=== PATIENT | female | born 1945 | race Hispanic/Latino ===

== ENCOUNTER → 2017-10-05 | Outpatient (CLI) | payer MEDICARE ==
[~2017-10-05] MED LIST: ALENDRONATE SOD70 MG PO; ASPIRIN81 MG PO; HYDROCODONE APAP; LOVASTATIN PO; Z.0.AMLODIPINE BESYL PO; Z.0.MELOXICAM15 MG PO
== END ==
LOC: MAMMO 09:17
PROVIDERS: ATTEND Internal Medicine
DX: Z12.31 Encounter for screening mammogram for malignant neoplasm of breast (principal)
CPT/HCPCS: 77067

== ENCOUNTER 2018-02-16 09:42 | Emergency (ER) | payer MEDICARE ==
[~2018-02-16] VITALS: Ht 149.9 cm; Wt 69.9 kg
--- OUTSIDE RECORDS SUMMARY | 2018-02-16 09:46 | XMS REPORT ---
Author Author Admin, [place] Organization [facility] Address [address] [place] [address] Phone Allergies, Adverse Reactions, Alerts Allergy Name Reaction Description Start Date Severity Status Provider No Known Allergies Rosie Silver [facility] Conditions or Problems Problem Name Problem Code Onset Date Status Entry Date Provider Comment Standard Description Annotate Cervix, screening for malignant neoplasm V76.2 Active Santiago Camarena MD Screening for malignant neoplasms of the cervix [employer] Chief annual exam V72.3 Active Santiago Camarena MD Special investigations and examinations - Gynecological examination High cholesterol 272.0 Active Santiago Camarena MD Pure hypercholesterolemia Hx of osteopenia V13.59 Active Santiago Camarena MD Personal history of other musculoskeletal disorders Hypertension 401.9 Active Santiago Camarena MD Unspecified essential hypertension Medication List Medication Instructions Start Date Stop Date Generic Name NDC Status Provider Patient Instruction ALENDRONATE SODIUM 70 MG ORAL TABLET 1 pill weekly By Mouth ALENDRONATE SODIUM 42296261565 Active Santiago Camarena MD Active AMLODIPINE BESYLATE 5 MG ORAL TABLET TK 1 T PO QD AMLODIPINE BESYLATE 50826603122 Active Santiago Camarena MD Active ASPIRIN EC LOW DOSE 81 MG ORAL TABLET DELAYED RELEASE TK 1 T PO QD ASPIRIN 42811920261 Active Santiago Camarena MD Active LOVASTATIN 40 MG ORAL TABLET TK 1 T PO QD LOVASTATIN 89833477499 Active Santiago Camarena MD Active Vital Signs Date Name Value Unit Range Description blood pressure, diastolic 74 mm[Hg] BP [place] blood pressure, systolic 128 mm[Hg] BP sys height E&M 60 [in_us] Bdy height pulse rate E&M 82 /min Heart rate respiratory rate E&M 18 /min Resp rate temperature E&M 98.7 [degF] Body temperature weight E&M 153.60 [lb_av] Weight Measured Procedures Code Procedure Name Date Entry Date Standard Description CPT-91094 Est Patient Well Exam (65 & Over) - 03817 12:16:19 CDT CPT-99119 New Patient Well Exam (65 & Over) - 53798 11:28:03 CDT
--- OUTSIDE RECORDS SUMMARY | 2018-02-16 09:46 | XMS REPORT ---
Author Author [facility] Address Unknown Phone Unavailable Care Team Providers Care Stratigrapher Name Role Phone Clemencia MARTINEZ Unavailable Unavailable Problems This patient has no known problems. Allergies, Adverse Reactions, Alerts This patient has no known allergies or adverse reactions. Medications This patient has no known medications. Results Test Description Test Time Test Comments Text Results Atomic Results Result Comments MAMMOGRAPHY DIGITAL SCR BILAT 2017-10-05 09:57:00 [place] [address] Patient Name: BETY LATHAM MR #: [id number] : 1945 Age/Sex: 72/F Req #: [id number] [facility] Physician: Ordered by: BRYSON MARTINEZ MD Report #: [id number] Location: MAMMO Room/Bed: Procedure: [id number] MG/MAMMOGRAPHY DIGITAL SCR BILAT Exam Date: 10/05/17 Exam Time: 0940 REPORT STATUS: Signed #[id number] - MGSCRBIL #BILATERAL DIGITAL SCREENING MAMMOGRAM WITH CAD: 10/05/2017 CLINICAL: Routine screening. Comparison is made to exams dated: 09/08/2016 mammogram and 08/25/2015 mammogram - [facility]. Current study contains 4 films. The tissue of both breasts is heterogeneously dense. This may lower the sensitivity of mammography. Current study was also evaluated with a Computer Aided Detection (CAD) system. There are benign calcifications in both breasts. Breast tissue asymmetry in the upper outer aspect of the right breast is unchanged. No significant masses, calcifications, or other findings are seen in either breast. There has been no significant interval change. IMPRESSION: BENIGN There is no mammographic evidence of malignancy. A 1 ye ar screening mammogram is recommended. The patient will be notified by letter of the results. Arsenio Angel Jr., D.O. cw/:10/12/2017 12:45:23 Shampoo Assistant: Blessing PASTOR)([place]), [facility] letter sent: Compared to Prior B9 Mammogram BI- RADS: 2 Benign Dictated By: ARSENIO ANGEL DO [id number] Transcribed By: SOPHIA on 10/12/17 1243 COPY TO: BRYSON MARTINEZ MD
--- NOTE | 2018-02-16 10:23 | NUR ---
pt states she tripped over grand daughter and fell per daughter pt hit face on concrete pt has bruising to right head and right eye with swelling pt also has bruising to right thigh and c/o pain to right lower leg from fall no deformities, no bruising behind ears, no csf or blood form nose and ears, no crepitus noted pt states pain to head and upper thigh states pain is sharp on palpation /10 denies pain when moving
--- NOTE | 2018-02-16 11:00 | Diagnostic Imaging Report ---
HIP RIGHT 2-3 VW (+/- PELVIS) - 2 views HISTORY: Fall. COMPARISON: None available. FINDINGS: Bilateral hip arthroplasty. Hardware are intact. Generalized demineralization limits evaluation. No acute displaced fracture or dislocation of the pelvis or the right hip. Heterotopic ossification adjacent to the right greater trochanter. Severe degenerative changes of the visualized lower lumbar spine as well as degenerative changes of SI joints. IMPRESSION: No acute radiographic abnormality. Bilateral hip arthroplasty. Hardware are intact. Signed by: Dr. Micheal Barbosa MD on 02/16/2018 10:57 AM
--- NOTE | 2018-02-16 11:22 | Diagnostic Imaging Report ---
Claims: Head and maxillofacial CTs without IV contrast History: Trauma, fall, hit for head and cheek, pain Comparison studies: Head CT 10/30/2011 Technique: Axial images were obtained to the vertex and maxillofacial region. Coronal and sagittal images reconstructed from the axial data. Intravenous contrast: None Findings: Scalp: Right frontal scalp hematoma. Bones: No fractures, blastic or lytic lesions. Brain sulci: Mildly prominent. Ventricles: Mild compensatory dilatation. No hydrocephalus. Extra axial spaces: No mass, no fluid collection. Parenchyma: No mass, acute hemorrhage or acute or chronic cortical vascular insults. A few scattered hypodensities in the supratentorial white matter are nonspecific but most compatible with chronic microvascular ischemic changes. Sellar/suprasellar region: No abnormalities Craniocervical junction: Patent foramen magnum. No Chiari one malformation. Maxillofacial CT: Soft tissues: Right frontal scalp hematoma. Mild right premaxillary and prezygomatic soft tissue swelling. Bones: No fractures or bony abnormalities. Orbits: Globes: Intact Extra or intraconal abnormalities: None. Paranasal sinuses: Small retention cysts in the maxillary sinuses and small nonspecific fluid in the right sphenoid sinus. Remaining sinuses are clear. Incidental findings: * Multilevel degenerative changes in the included cervical spine * Atherosclerotic calcifications in the carotid siphons. * Few scattered subcentimeter calcifications such as that along the parasymphyseal lingual and buccal soft tissues, within the right parapharyngeal space and posterior to the carotid space at the level of the right ventricular angle. These may represent phleboliths which raise the possibility for flow vascular mouth remission. IMPRESSION: Head CT: 1. Right frontal scalp hematoma without underlying fracture. 2. No acute intracranial abnormalities. 3. Mild generalized volume loss and mild chronic microvascular ischemic changes. Maxillofacial CT: 1. No maxillofacial fracture. 2. Right frontal scalp hematoma and right premaxillary and prezygomatic soft tissue swelling. 3. Incidental few scattered calcifications/possible phlebolith as described which can be seen with low flow vascular malformation such as a venous malformation. Nonemergent maxillofacial MRI with IV contrast may further evaluate as clinically warranted. Signed by: Dr. Pete Melendrez M.D. on 02/16/2018 11:19 AM
[2018-02-16] MEDS ORDERED: HYDROCODONE/APAP 5MG-325MG TAB PO ONE (12:00)
== END 2018-02-16 12:21 | disposition home or self-care (01) ==
LOC: ER 09:42
DX: S00.83XA Contusion of other part of head, initial encounter (principal); S00.11XA Contusion of right eyelid and periocular area, initial encounter; S70.01XA Contusion of right hip, initial encounter; S70.11XA Contusion of right thigh, initial encounter; W03.XXXA Other fall on same level due to collision with another person, initial encounter; Y93.89 Activity, other specified; Y92.89 Other specified places as the place of occurrence of the external cause; I10 Essential (primary) hypertension; E78.5 Hyperlipidemia, unspecified; Z79.82 Long term (current) use of aspirin
CPT/HCPCS: 70450; 70486; 99283

== ENCOUNTER → 2018-10-11 | Outpatient (CLI) | payer MEDICARE ==
--- NOTE | 2018-10-14 08:34 | Diagnostic Imaging Report ---
#[id number] - MGSCRBIL #BILATERAL DIGITAL SCREENING MAMMOGRAM WITH CAD: 10/11/2018 CLINICAL: Routine screening. Comparison is made to exams dated: 10/05/2017 mammogram and 09/08/2016 mammogram - [facility]. Current study contains 4 films. The tissue of both breasts is heterogeneously dense. This may lower the sensitivity of mammography. Current study was also evaluated with a Computer Aided Detection (CAD) system. There are benign calcifications in both breasts. Breast tissue asymmetry in the upper outer aspect of the right breast is unchanged. No significant masses, calcifications, or other findings are seen in either breast. IMPRESSION: BENIGN There is no mammographic evidence of malignancy. A 1 year screening mammogram is recommended. The patient will be notified by letter of the results. ALFREDA YAÑEZ M.D. ct/penrad:10/11/2018 16:17:17 Wig Dresser: Blessing PASTOR)([place]), [facility] letter sent: Normal Exam Mammogram BI-RADS: 2 Benign
== END ==
LOC: MAMMO 11:25
PROVIDERS: ATTEND Internal Medicine
DX: Z12.31 Encounter for screening mammogram for malignant neoplasm of breast (principal)
CPT/HCPCS: 77067

== ENCOUNTER → 2019-09-23 | Day surgery (SDC) | payer MEDICARE, OTHER ==
[2019-09-18 09:33] LABS: BASOPHILS # (AUTO) 0.1 (0.0-0.1); BASOPHILS % 0.7 % (0.0-1.0); EOSINOPHILS # (AUTO) 0.2 (0.0-0.4); EOSINOPHILS % 3.2 % (0.0-6.0); HEMATOCRIT 37.7 % (34.2-44.1); HEMOGLOBIN 11.7 g/dL (12.0-16.0); LYMPHOCYTES # (AUTO) 1.7 (1.0-3.2); LYMPHOCYTES % 23.1 % (18.0-39.1); MEAN CORPUSCULAR HEMOGLOBIN 27.9 pg (28-32); MONOCYTES # (AUTO) 0.4 (0.2-0.8); MONOCYTES % 5.3 % (4.4-11.3); NEUTROPHILS # (AUTO) 4.9 (2.1-6.9); NEUTROPHILS % 67.4 % (38.7-80.0); PLATELET COUNT 260 x10e3/uL (140-360); RED BLOOD COUNT 4.19 x10e6/uL (3.6-5.1); RED CELL DISTRIBUTION WIDTH 15.2 % (11.7-14.4)
[~2019-09-23] MED LIST changes: +GLIMEPIRIDE1 MG PO; +LOSARTAN POTAS100 MG PO; +PROPOFOL IV EMULSION 10 MG/ML 20 ML VIAL ONE
[2019-09-23 09:38] VITALS: BP 127/63
== END | disposition home or self-care (01) ==
LOC: OR 06:24
PROVIDERS: ATTEND Internal Medicine Gastroenterology
DX: K56.699 Other intestinal obstruction unspecified as to partial versus complete obstruction (principal); Z90.49 Acquired absence of other specified parts of digestive tract; Z93.3 Colostomy status; E11.9 Type 2 diabetes mellitus without complications; I10 Essential (primary) hypertension; Z01.810 Encounter for preprocedural cardiovascular examination; Z01.812 Encounter for preprocedural laboratory examination; Z11.59 Encounter for screening for other viral diseases; Z79.82 Long term (current) use of aspirin; Z79.84 Long term (current) use of oral hypoglycemic drugs
CPT/HCPCS: 36415 ×2; 44388; 82948; 85025; 93005; J2704; U0002; 45378

== ENCOUNTER → 2019-10-14 | Outpatient (CLI) | payer MEDICARE ==
[~2019-10-14] MED LIST changes: -PROPOFOL IV EMULSION 10 MG/ML 20 ML VIAL ONE
--- NOTE | 2019-10-15 13:41 | Diagnostic Imaging Report ---
#[id number] - MGSCRBIL #BILATERAL DIGITAL SCREENING MAMMOGRAM WITH CAD: 10/14/2019 CLINICAL: Routine screening. Comparison is made to exams dated: 10/11/2018 mammogram and 10/05/2017 mammogram - [facility]. The tissue of both breasts is heterogeneously dense. This may lower the sensitivity of mammography. Current study was also evaluated with a Computer Aided Detection (CAD) system. There are benign scattered calcifications in both breasts. There also is a benign lymph node in the right breast. Additionally there are benign lymph nodes in the left breast. No significant masses, calcifications, or other findings are seen in either breast. There has been no significant interval change. IMPRESSION: BENIGN There is no mammographic evidence of malignancy. A 1 year screening mammogram is recommended. The patient will be notified by letter of the results. ALVARADO lisa/jay:10/15/2019 11:50:58 Tree Care Foreman: Blessing BAIG(R)(M), [facility] letter sent: Compared to Prior B9 Mammogram BI-RADS: 2 Benign
== END ==
LOC: MAMMO 10:38
PROVIDERS: ATTEND Internal Medicine
DX: Z12.31 Encounter for screening mammogram for malignant neoplasm of breast (principal)
CPT/HCPCS: 77067

== ENCOUNTER → 2020-10-18 | Outpatient (CLI) | payer MEDICARE | LOC: MAMMO 08:30 | PROVIDERS: ATTEND Internal Medicine | DX: Z12.31 Encounter for screening mammogram for malignant neoplasm of breast (principal) | CPT/HCPCS: 77067 ==

== ENCOUNTER → 2021-10-19 | Outpatient (CLI) | payer MEDICARE | LOC: MAMMO 08:17 | PROVIDERS: ATTEND Internal Medicine | DX: Z12.31 Encounter for screening mammogram for malignant neoplasm of breast (principal) | CPT/HCPCS: 77067 ==

== ENCOUNTER → 2023-12-17 | Outpatient (REF) | payer MEDICARE ==
[~2023-12-17] MED LIST changes: +ZESTRIL10 MG PO
== END ==
LOC: MAMMO 10:28
PROVIDERS: ATTEND Student in an Organized Health Care Education/Training Program
DX: Z12.31 Encounter for screening mammogram for malignant neoplasm of breast (principal)
CPT/HCPCS: 77067

== ENCOUNTER → 2024-12-17 | Outpatient (REF) | payer MEDICARE | LOC: MAMMO 08:38 | PROVIDERS: ATTEND Internal Medicine | DX: Z12.31 Encounter for screening mammogram for malignant neoplasm of breast (principal) | CPT/HCPCS: 77067 ==